=== PATIENT | female | born 1995 | race Caucasian/White ===

== ENCOUNTER 2016-08-10 11:26 | Emergency (ER) | payer OTHER ==
[2016-08-10 11:34] VITALS: TEMP 99
[2016-08-10] MEDS ORDERED: NS 2,000 ML IV ONE (11:56)
[2016-08-10] MEDS ORDERED: IBUPROFEN 200 MG TAB PO ONE (11:57)
--- NOTE | 2016-08-10 11:57 | EDPHY ---
H & P Stated Complaint: Dx w/flu at urgent care without flu swawp. Flu like symptoms - Personal History LMP (Females 10-55): Extended Cycle BCP/Inj Current Tetanus/Diphtheria Vaccine: Yes Current Tetanus Diphtheria and Acellular Pertussis (TDAP): Yes - Social History Smoking Status: Never smoked Time Seen by Provider: 08/10/16 11:44 HPI/ROS: CHIEF COMPLAINT: Flu-like symptoms x 4 days HISTORY OF PRESENT ILLNESS: 21-year-old immunocompetent female with no influenza vaccination complaining of 4 days of flu-like symptoms, myalgias, sore throat, nausea, vomiting. No urinary symptoms. No international travel. No rash. No diarrhea. No melena or hematochezia. She was seen at an urgent care 4 days ago diagnosed with clinical influenza and started on Tamiflu. REVIEW OF SYSTEMS: A ten point review of systems was performed and is negative with the exception of the items mentioned in the HPI PAST MEDICAL & SURGICAL HISTORY: tonsillectomy SOCIAL HISTORY: student nonsmoker PHYSICAL EXAM (Prior to examination, patient consented to physical exam, hands were washed and my usual and customary physical exam procedures followed) 1) GENERAL: Well-developed, well-nourished, alert and oriented. Appears uncomfortable, crying 2) HEAD: Normocephalic, atraumatic 3) HEENT: Pupils equal, round, reactive to light bilaterally. Injected sclera . Nasopharynx: Rhinorrhea and congestion. Oropharynx: atonsillar, posterior oropharynx erythematous. . Ears bilaterally with normal tympanic membranes. 4) NECK: Full range of motion, no meningeal signs. No adenopathy. 5) LUNGS: Clear auscultation bilaterally, no wheezes, no rhonchi, no retractions. 6) HEART: Regular rate and rhythm, no murmur, no heave, no gallop. 7) ABDOMEN: No guarding, no rebound, no focal tenderness, negative McBurney's, negative Fregoso's, negative Rovsing's, negative peritoneal sign, I am unable to elicit any abdominal pain 8) MUSCULOSKELETAL: Moving all extremities, no focal areas of tenderness, no obvious trauma. No peripheral edema or discoloration. 9) BACK: No CVA tenderness, no midline vertebral tenderness, no fluctuance, no step-off, no obvious trauma, no visual or palpable abnormality. 10) SKIN: No rash, no petechiae. 11) Psychiatric: Patient is oriented X 3, there is no agitation. DIFFERENTIAL DIAGNOSIS: in no particular include but limited to strep pharyngitis, influenza, meningitis, viral syndrome, pneumonia (Ayse Alvarez) Constitutional: Initial Vital Signs Temperature (C) 37.2 C 08/10/16 11:29 Heart Rate 110 H 08/10/16 11:29 Respiratory Rate 20 08/10/16 11:29 Blood Pressure 148/93 H 08/10/16 11:29 O2 Sat (%) 97 08/10/16 11:29 O2 Delivery Mode Room Air Allergies/Adverse Reactions: No Known Allergies Allergy (Unverified 08/10/16 11:35) Home Medications: Medication Instructions Recorded Ipratropium 0.06% Nasal [Atrovent 2 sprays EACHNARE QID #1 mdi 08/10/16 0.06% Nasal (RX)] Ondansetron Odt [Zofran Odt] 4 mg PO Q4PRN PRN #10 tab 08/10/16 Oxycodone HCl [Oxyir] 5 mg PO Q6 PRN #10 capsule 08/10/16 Medical Decision Making - Diagnostics Imaging: PA and lateral chest. Clinical History: PAIN Comparison Study: None available. Findings: The lungs are clear. No pleural disease identified. Heart size is normal. Prior ORIF mid shaft right clavicle fracture, healed.. Impression: Negative chest. Dictated By: Aneudy Dalton MD Images reviewed by myself (Ayse Alvarez) ED Course/Re-evaluation: 2:00 p.m.: Re-evaluationIV hydration for fluid depletion provided.. At this time she is reexamined states "I feel 100% better, I feel like a human again". She remains with no nuchal rigidity, answering questions appropriately, maintain normal saturations. Discussed her laboratory results. Re-examined her abdomen which is soft no guarding or rebound no McBurney's point pain no Fregoso's sign. Heart rate in the mid 80s. She has elevated liver function studies. Inquired further about history of alcohol use she states she uses social alcohol only, no history injectable drug use, no international travel. States that she has been taking acetaminophen according to on the bottle dosage instructions. Will obtain acetaminophen level and reassess. Discussed case with Dr. Ynes Plata. 2:45 p.m.: Tylenol level is within normal limits. We discussed the importance of close follow-up. She has no local PCP. Plan will be follow up with an establishment of care with on-call primary care and also Gastroenterology. She has been given this referral information feels comfortable being discharged. Think that her symptoms are more likely secondary to acute viral in etiology. Will hold on antibiotics at this time. ( Ayse Alvarez) Other Provider: The patient was evaluated and managed by the Physician Student Ambassador/ Nurse Practitioner. I discussed the patient's presentation and course with the midlevel provider with them and agree with the evaluation. My co-signature indicates that I have reviewed this chart and I agree with the findings and plan of care as documented. I am the secondary supervising physician. (Ynes Plata) - Data Points Laboratory Results: Laboratory Results 08/10/16 12:40 08/10/16 12:45 08/10/16 08/10/16 08/10/16 Unknown 13:10 12:45 WBC RBC Hgb Hct MCV MCH MCHC RDW Plt Count MPV Neut % (Auto) Lymph % (Auto) [place] % (Auto) Eos % (Auto) Baso % (Auto) Nucleat RBC Rel Count Absolute Neuts (auto) Absolute Lymphs (auto) Absolute Monos (auto) Absolute Eos (auto) Absolute Basos (auto) Absolute Nucleated RBC Immature Gran % Immature Gran # Sodium Potassium Chloride Carbon Dioxide Anion Gap BUN Creatinine Estimated GFR Glucose Calcium Total Bilirubin Conjugated Bilirubin Unconjugated Bilirubin AST ALT Alkaline Phosphatase Creatine Kinase Total Protein Albumin Lipase Beta HCG, Qual Acetaminophen 15 mcg/mL mcg/mL (10.0-30.0) Monoscreen Influenza Typ A,B (DFA) Group A Strep Screen NEGATIVE (NEGATIVE) Group A Strep DNA NEGATIVE (NEGATIVE) 08/10/16 08/10/16 08/10/16 12:45 12:45 12:40 WBC 6.19 10^3/uL 10^3/uL (3.80-9.50) RBC 4.51 10^6/uL 10^6/uL (4.18-5.33) Hgb 13.5 g/dL g/dL (12.6-16.3) Hct 39.2 % % (38.0-47.0) MCV 86.9 fL fL (81.5-99.8) MCH 29.9 pg pg (27.9-34.1) MCHC 34.4 g/dL g/dL (32.4-36.7) RDW 12.6 % % (11.5-15.2) Plt Count 189 10^3/uL 10^3/uL (150-400) MPV 11.2 fL fL (8.7-11.7) Neut % (Auto) 60.1 % % (39.3-74.2) Lymph % (Auto) 27.9 % % (15.0-45.0) [place] % (Auto) 11.0 % % (4.5-13.0) Eos % (Auto) 0.2 % L % (0.6-7.6) Baso % (Auto) 0.5 % % (0.3-1.7) Nucleat RBC Rel Count 0.0 % % (0.0-0.2) Absolute Neuts (auto) 3.72 10^3/uL 10^3/uL (1.70-6.50) Absolute Lymphs (auto) 1.73 10^3/uL 10^3/uL (1.00-3.00) Absolute Monos (auto) 0.68 10^3/uL 10^3/uL (0.30-0.80) Absolute Eos (auto) 0.01 10^3/uL L 10^3/uL (0.03-0.40) Absolute Basos (auto) 0.03 10^3/uL 10^3/uL (0.02-0.10) Absolute Nucleated RBC 0.00 10^3/uL 10^3/uL (0-0.01) Immature Gran % 0.3 % % (0.0-1.1) Immature Gran # 0.02 10^3/uL 10^3/uL (0.00-0.10) Sodium 139 mEq/L mEq/L (134-144) Potassium 4.5 mEq/L mEq/L (3.5-5.2) Chloride 104 mEq/L mEq/L (97-110) Carbon Dioxide 18 mEq/l L mEq/l (22-31) Anion Gap 17 mEq/L H mEq/L (8-16) BUN 8 mg/dL mg/dL (7-23) Creatinine 0.7 mg/dL mg/dL (0.6-1.0) Estimated GFR > 60 Glucose 93 mg/dL mg/dL (70-100) Calcium 10.1 mg/dL mg/dL (8.5-10.4) Total Bilirubin 0.8 mg/dL mg/dL (0.1-1.4) Conjugated Bilirubin 0.6 mg/dL H mg/dL (0.0-0.5) Unconjugated Bilirubin 0.2 mg/dL mg/dL (0.0-1.1) AST 169 IU/L H IU/L (14-46) ALT 216 IU/L H IU/L (9-52) Alkaline Phosphatase 197 IU/L H IU/L (38-126) Creatine Kinase 94 IU/L IU/L (0-156) Total Protein 8.0 g/dL g/dL (6.3-8.2) Albumin 4.7 g/dL g/dL (3.5-5.0) Lipase 80.0 IU/L IU/L (23-300) Beta HCG, Qual NEGATIVE Acetaminophen Monoscreen NEGATIVE (NEGATIVE) Influenza Typ A,B (DFA) Group A Strep Screen Group A Strep DNA 08/10/16 11:32 WBC RBC Hgb Hct MCV MCH MCHC RDW Plt Count MPV Neut % (Auto) Lymph % (Auto) [place] % (Auto) Eos % (Auto) Baso % (Auto) Nucleat RBC Rel Count Absolute Neuts (auto) Absolute Lymphs (auto) Absolute Monos (auto) Absolute Eos (auto) Absolute Basos (auto) Absolute Nucleated RBC Immature Gran % Immature Gran # Sodium Potassium Chloride Carbon Dioxide Anion Gap BUN Creatinine Estimated GFR Glucose Calcium Total Bilirubin Conjugated Bilirubin Unconjugated Bilirubin AST ALT Alkaline Phosphatase Creatine Kinase Total Protein Albumin Lipase Beta HCG, Qual Acetaminophen Monoscreen Influenza Typ A,B (DFA) NEGATIVE FOR FLU (NEGATIVE) Group A Strep Screen Group A Strep DNA Medications Given: Discontinued Medications Sodium Chloride (Ns) 2,000 mls @ 0 mls/hr IV ONCE ONE PRN Reason: Wide Open Stop: 08/10/16 11:57 Last Admin: 08/10/16 12:15 Dose: 2,000 mls Ibuprofen (Motrin) 800 mg PO EDNOW ONE Stop: 08/10/16 11:58 Last Admin: 08/10/16 12:15 Dose: 800 mg Departure - Departure Disposition: Home, Routine, Self-Care Clinical Impression: LFT elevation Upper respiratory infection Qualifiers: URI type: unspecified URI Qualified Code(s): J06.9 - Acute upper respiratory infection, unspecified Condition: Good Instructions: Upper Respiratory Infection (ED) Additional Instructions: Do not take any further Tylenol or Tylenol (generic name acetaminophen) containing products. Do not drink alcohol. Referrals: Kaleb Rodriguez MD [Medical Doctor] - 1-2 days without fail Aftab Ayala MD [Medical Doctor] - 1-2 days without fail Stand Alone Forms: School Excuse Prescriptions: Ipratropium 0.06% Nasal [Atrovent 0.06% Nasal (RX)] 2 sprays EACHNARE QID #1 mdi Ondansetron Odt [Zofran Odt] 4 mg PO Q4PRN PRN #10 tab PRN Reason: Nausea Oxycodone HCl [Oxyir] 5 mg PO Q6 PRN #10 capsule PRN Reason: Pain, Severe Able To Take Po
[2016-08-10] MEDS ORDERED: IBUPROFEN 600 MG TAB PO ONE (12:21)
[2016-08-10 12:52] LABS: % IMMATURE GRANULYOCYTES 0.3 % (0.0-1.1); ABSOLUTE IMMATURE GRANULOCYTES 0.02 10^3/uL (0.00-0.10); ADD DIFF? NO; ADD MORPH? NO; ADD SCAN? YES; FRAGMENT RBC FLAG 0 (0-99); HEMATOCRIT 39.2 % (38.0-47.0); HEMOGLOBIN 13.5 g/dL (12.6-16.3); LIPEMIA HEMOLYSIS FLAG 90 (0-99); MEAN CELL HEMOGLOBIN 29.9 pg (27.9-34.1); MEAN CELL HEMOGLOBIN CONCENTR. 34.4 g/dL (32.4-36.7); MEAN CELL VOLUME 86.9 fL (81.5-99.8); MEAN PLATELET VOLUME 11.2 fL (8.7-11.7); PLATELET COUNT 189 10^3/uL (150-400); RED BLOOD CELL COUNT 4.51 10^6/uL (4.18-5.33); RED CELL DISTRIBUTION WIDTH 12.6 % (11.5-15.2)
[2016-08-10 12:55] LABS: ATYPICAL LYMPHOCYTE FLAG 150 (0-99); LEFT SHIFT FLG 130 (0-99); PLATELET CLUMPS FLAG 300 (0-99)
[2016-08-10 13:28] LABS: ALANINE AMINOTRANSFERASE 216 IU/L (9-52); ALBUMIN 4.7 g/dL (3.5-5.0); ALKALINE PHOSPHATASE 197 IU/L (38-126); ANION GAP 17 mEq/L (8-16); ASPARTATE AMINOTRANSFERASE 169 IU/L (14-46); BILIRUBIN,TOTAL 0.8 mg/dL (0.1-1.4); BILIRUBIN-CONJUGATED 0.6 mg/dL (0.0-0.5); BILIRUBIN-UNCONJUGATED 0.2 mg/dL (0.0-1.1); CALCIUM 10.1 mg/dL (8.5-10.4); CARBON DIOXIDE 18 mEq/l (22-31); CHLORIDE 104 mEq/L (97-110); CREATININE 0.7 mg/dL (0.6-1.0); GLOMERULAR FILTRATION RATE > 60; GLUCOSE 93 mg/dL (70-100); MONO TEST NEGATIVE (NEGATIVE); POTASSIUM 4.5 mEq/L (3.5-5.2); SODIUM 139 mEq/L (134-144)
[2016-08-10 13:33] LABS: BHCG-QUALITATIVE NEGATIVE
[2016-08-10 13:35] LABS: SCAN NEGATIVE
[2016-08-10 14:59] VITALS: BP 146/92; PULSE 95; RESP 16; O2SAT 96
== END 2016-08-10 15:06 | disposition home or self-care (01) ==
DX: J06.9 Acute upper respiratory infection, unspecified (principal); R79.89 Other specified abnormal findings of blood chemistry
CPT/HCPCS: G0480

== ENCOUNTER 2018-08-27 13:23 | Emergency (ER) | payer OTHER ==
[2018-08-27] MEDS ORDERED: NS 1,000 ML IV ONE (13:49)
[2018-08-27] MEDS ORDERED: LORazepam 2 MG/ML INJ IVP ONE (13:49)
[2018-08-27] MEDS ORDERED: ONDANSETRON 4 MG/2 ML VIAL IVP ONE (13:49)
--- NOTE | 2018-08-27 13:54 | EDPHY ---
H & P Stated Complaint: Chronic vomit c anxiety, chronic GI, worse last 3D. Time Seen by Provider: 08/27/18 13:38 HPI/ROS: CHIEF COMPLAINT: Anxiety, vomiting HISTORY OF PRESENT ILLNESS: 23-year-old female history of chronic anxiety, has previously seen Gastroenterology of the [facility]. She notes that ever since starting school 12 weeks ago she has had chronic diarrhea. On the 5th week of said symptoms she was seen at [facility] had laboratory studies done. She has an appointment with a new signal integrity engineer) name unknown) tomorrow. She has been experiencing intractable nausea and vomiting for the past 2 days and as such has been unable to keep her propranolol and Lexapro down and is experiencing high levels of anxiety. Denies suicidal or homicidal ideation. Denies abdominal pain. Denies hematochezia or melena REVIEW OF SYSTEMS: 10 systems reviewed and negative with the exception of the elements mentioned in the history of present illness PAST MEDICAL & SURGICAL HISTORY: No pertinent medical or surgical history SOCIAL HISTORY: Student. Nonsmoker PHYSICAL EXAM (Prior to examination, patient consented to physical exam, hands were washed and my usual and customary physical exam procedures followed) 1) GENERAL: Well-developed, well-nourished, alert and oriented. Hyperventilating, crying. 2) HEAD: Normocephalic, atraumatic 3) HEENT: Pupils equal, round, reactive to light bilaterally. Sclera anicteric. Nasopharynx, oropharynx, clear, no lesions. Dry mucous membranes. 4) NECK: Full range of motion, no meningeal signs. 5) LUNGS: Clear auscultation bilaterally, no wheezes, no rhonchi, no retractions. 6) HEART: Regular rate and rhythm, no murmur, no heave, no gallop. 7) ABDOMEN: No guarding, no rebound, no focal tenderness, negative McBurney's, negative Fregoso's, negative Rovsing's, negative peritoneal sign, 8) MUSCULOSKELETAL: Moving all extremities, no focal areas of tenderness, no obvious trauma. No peripheral edema or discoloration. 9) BACK: No CVA tenderness, no midline vertebral tenderness, no fluctuance, no step-off, no obvious trauma, no visual or palpable abnormality. 10) SKIN: No rash, no petechiae. 11) Psychiatric: Patient is oriented X 3, there is no agitation. DIFFERENTIAL DIAGNOSIS: My differential diagnosis includes, but is not limited to, acute appendicitis, volume depletion, gastroenteritis, acute cholecystitis, bowel obstruction, acute pancreatitis, - Personal History LMP (Females 10-55): Extended Cycle BCP/Inj Current Tetanus/Diphtheria Vaccine: Yes - Medical/Surgical History Hx Asthma: No Hx Chronic Respiratory Disease: No Hx Diabetes: No Hx Cardiac Disease: No Hx Renal Disease: No Hx Cirrhosis: No Hx Alcoholism: No Hx HIV/AIDS: No Hx Splenectomy or Spleen Trauma: No Other PMH: Anxiety, GI, - Social History Smoking Status: Never smoked Constitutional: Initial Vital Signs Temperature (C) 36.7 C 08/27/18 13:27 Heart Rate 84 08/27/18 13:27 Respiratory Rate 18 08/27/18 13:27 Blood Pressure 118/78 08/27/18 13:27 O2 Sat (%) 98 08/27/18 13:27 O2 Delivery Mode Room Air Allergies/Adverse Reactions: No Known Allergies Allergy (Verified 08/27/18 13:27) Home Medications: Medication Instructions Recorded Ipratropium 0.06% Nasal [Atrovent 2 sprays EACHNARE QID #1 mdi 08/10/16 0.06% Nasal (RX)] Ondansetron Odt [Zofran Odt] 4 mg PO Q4PRN PRN #10 tab 08/10/16 Oxycodone HCl [Oxyir] 5 mg PO Q6 PRN #10 capsule 08/10/16 Ondansetron Odt [Zofran Odt] 4 mg PO Q4PRN PRN #10 tab 08/27/18 Medical Decision Making ED Course/Re-evaluation: 2:00 p.m.: I have reviewed this patient's old medical records. I previously evaluated the patient emergency department approximately 2 years ago. She appears acutely anxious and appears volume depleted. Will administer IV fluids as well as antiemetic and anxiolytic. Will check laboratory studies. She has an appoint with a signal integrity engineer tomorrow that encouraged her to keep. At this time I think that acute surgical abdominal pathology is less than likely. I Do not anticipate hospitalization or imaging studies at this time. Care of patient under supervision of secondary supervising physician Dr Lopez . 3:45 p.m.: Re-evaluation. Patient has received IV antiemetic and anxiolytics as well as IV fluids. She is smiling at this time states that she is feeling better. She is able tolerate oral intake. No abdominal pain. Plan will be discharge home. Recommend she keep her appointment with Gastroenterology tomorrow. She feels comfortable being discharged. - Data Points Laboratory Results: Laboratory Results 08/27/18 14:50 08/27/18 14:50 08/27/18 08/27/18 08/27/18 14:50 14:50 14:50 WBC 12.26 10^3/uL H 10^3/uL (3.80-9.50) RBC 4.51 10^6/uL 10^6/uL (4.18-5.33) Hgb 14.2 g/dL g/dL (12.6-16.3) Hct 40.2 % % (38.0-47.0) MCV 89.1 fL fL (81.5-99.8) MCH 31.5 pg pg (27.9-34.1) MCHC 35.3 g/dL g/dL (32.4-36.7) RDW 11.7 % % (11.5-15.2) Plt Count 273 10^3/uL 10^3/uL (150-400) MPV 10.2 fL fL (8.7-11.7) Neut % (Auto) 66.3 % % (39.3-74.2) Lymph % (Auto) 22.7 % % (15.0-45.0) [place] % (Auto) 10.4 % % (4.5-13.0) Eos % (Auto) 0.1 % L % (0.6-7.6) Baso % (Auto) 0.3 % % (0.3-1.7) Nucleat RBC Rel Count 0.0 % % (0.0-0.2) Absolute Neuts (auto) 8.13 10^3/uL H 10^3/uL (1.70-6.50) Absolute Lymphs (auto) 2.78 10^3/uL 10^3/uL (1.00-3.00) Absolute Monos (auto) 1.27 10^3/uL H 10^3/uL (0.30-0.80) Absolute Eos (auto) 0.01 10^3/uL L 10^3/uL (0.03-0.40) Absolute Basos (auto) 0.04 10^3/uL 10^3/uL (0.02-0.10) Absolute Nucleated RBC 0.00 10^3/uL 10^3/uL (0-0.01) Immature Gran % 0.2 % % (0.0-1.1) Immature Gran # 0.03 10^3/uL 10^3/uL (0.00-0.10) Sodium 138 mEq/L mEq/L (135-145) Potassium 3.7 mEq/L mEq/L (3.5-5.2) Chloride 103 mEq/L mEq/L (97-110) Carbon Dioxide 18 mEq/l L mEq/l (22-31) Anion Gap 17 mEq/L H mEq/L (6-14) BUN 12 mg/dL mg/dL (7-23) Creatinine 0.8 mg/dL mg/dL (0.6-1.0) Estimated GFR > 60 Glucose 94 mg/dL mg/dL (70-100) Calcium 10.4 mg/dL mg/dL (8.5-10.4) Total Bilirubin 1.5 mg/dL H mg/dL (0.1-1.4) Conjugated Bilirubin 0.3 mg/dL mg/dL (0.0-0.5) Unconjugated Bilirubin 1.2 mg/dL H mg/dL (0.0-1.1) AST 40 IU/L IU/L (14-46) ALT 46 IU/L IU/L (9-52) Alkaline Phosphatase 66 IU/L IU/L (38-126) Total Protein 8.2 g/dL g/dL (6.3-8.2) Albumin 5.0 g/dL g/dL (3.5-5.0) Lipase 106 IU/L IU/L (23-300) Beta HCG, Qual NEGATIVE Medications Given: Discontinued Medications Sodium Chloride (Ns) 1,000 mls @ 0 mls/hr IV ONCE ONE PRN Reason: Wide Open Stop: 08/27/18 13:50 Last Admin: 08/27/18 14:58 Dose: 1,000 mls Lorazepam (Ativan Injection) 1 mg IVP EDNOW ONE Stop: 08/27/18 13:50 Last Admin: 08/27/18 14:57 Dose: 1 mg Ondansetron HCl (Zofran) 4 mg IVP EDNOW ONE Stop: 08/27/18 13:50 Last Admin: 08/27/18 14:58 Dose: 4 mg Ondansetron HCl (Zofran Odt) 4 mg PO EDNOW ONE Stop: 08/27/18 14:20 Last Admin: 08/27/18 14:22 Dose: 4 mg Departure - Departure Disposition: Home, Routine, Self-Care Clinical Impression: Nausea & vomiting Qualifiers: Vomiting type: unspecified Vomiting Intractability: non-intractable Qualified Code(s): R11.2 - Nausea with vomiting, unspecified Condition: Good Instructions: Acute Nausea and Vomiting (ED) Additional Instructions: Keep your appointment with Gastroenterology tomorrow. Referrals: Aftab Ayala MD [Medical Doctor] - 1 day without fail Prescriptions: Ondansetron Odt [Zofran Odt] 4 mg PO Q4PRN PRN #10 tab PRN Reason: Nausea
[2018-08-27] MEDS ORDERED: ONDANSETRON DISINTEGRATING 4 MG TAB PO ONE (14:19)
[2018-08-27 15:06] LABS: PLATELET COUNT 273 10^3/uL (150-400)
[2018-08-27 16:01] VITALS: BP 122/78
== END 2018-08-27 16:00 | disposition home or self-care (01) ==
DX: R11.2 Nausea with vomiting, unspecified (principal); F41.9 Anxiety disorder, unspecified
CPT/HCPCS: 96374; J2060; J2405